=== PATIENT | male | born 1935 | race Caucasian/White ===

== ENCOUNTER → 2018-08-07 | Outpatient (CLI) | payer OTHER, MEDICARE ==
[~2018-08-07] MED LIST: ASPIR LOW81 MG PO; B12,B-12,B 12500 MC1 PO; LISINOPRIL40 MG PO; NORCO 325 MG-51 TAB PO; ONE DAILY MULTI1 TA2 PO; TESTOSTERO200 MG/10 PO; VERAPAMIL240 MG PO; ZANTAC150 MG PO
[2018-08-07 09:54] LABS: ALBUMIN 3.8 gm/dl (3.1-4.5); CREATININE 1.7 mg/dL (0.70-1.30); POTASSIUM 5.1 mmol/L (3.5-5.1); TOTAL PROTEIN 8.4 gm/dL (6.4-8.2)
== END | disposition home or self-care (01) ==
LOC: LAB 08:58 → MRI 09:00
PROVIDERS: Nurse Practitioner Family
DX: K80.20 Calculus of gallbladder without cholecystitis without obstruction (principal); K76.89 Other specified diseases of liver; K86.89 Other specified diseases of pancreas; N28.1 Cyst of kidney, acquired

== ENCOUNTER 2019-08-29 11:51 | Emergency (ER) | payer OTHER ==
[~2019-08-29] VITALS: Ht 170.1 cm; Wt 80.7 kg
[2019-08-29 13:09] LABS: HEMOGLOBIN 13.7 g/dl (14.0-18.0); MEAN CELL VOLUME 92.4 fl (80.0-94.0); MEAN CORPUSCULAR HGB 31.6 pg (27.0-31.0); MEAN CORPUSCULAR HGB CONC 34.3 g/dl (33.0-37.0); MEAN PLATELET VOLUME 11.9 fl (9.6-12.3); PLATELET COUNT AUTOMATED 218 10*3/uL (130-400); RED BLOOD COUNT 4.33 10*6/uL (4.50-5.90); RED CELL DISTRI WIDTH 15.4 % (0-14.5); WHITE BLOOD COUNT 16.8 10*3/uL (4.8-10.8)
[2019-08-29 13:19] LABS: ACT PARTIAL THROMBO TIME 27.5 SECONDS (20.0-32.1); INTERNATIONAL NORM RATIO 1.1 (2.0-3.5)
[2019-08-29 13:27] LABS: ALBUMIN 3.1 gm/dl (3.1-4.5); ALKALINE PHOSPHATASE 171 U/L (45-117); BUN 36 mg/dl (7-24); CHLORIDE 99 mmol/L (98-107); CREATININE 2.16 mg/dL (0.70-1.30); LIPASE 43 U/L (73-393); SGOT/AST 258 IU/L (3-35); SGPT/ALT 270 U/L (12-78); SODIUM 130 mmol/L (136-145); TOTAL PROTEIN 7.6 gm/dL (6.4-8.2)
[2019-08-29 13:29] LABS: POTASSIUM 4.5 mmol/L (3.5-5.1); TROPONIN I < 0.015 ng/ml (<0.045)
[2019-08-29 13:31] LABS: TOTAL CELLS COUNTED 100 #CELLS
[2019-08-29 13:32] LABS: PLATELET SUFFICIENCY NORMAL (NORMAL)
== END 2019-08-29 16:06 ==
LOC: ED 11:51
PROVIDERS: Emergency Medicine
DX: K83.1 Obstruction of bile duct (principal); R82.90 Unspecified abnormal findings in urine; R53.1 Weakness; I10 Essential (primary) hypertension; K21.9 Gastro-esophageal reflux disease without esophagitis; Z88.2 Allergy status to sulfonamides; Z79.899 Other long term (current) drug therapy; Z79.82 Long term (current) use of aspirin

== ENCOUNTER 2019-11-01 01:34 | Emergency (ER) | payer OTHER ==
[~2019-11-01] VITALS: Ht 172 cm; Wt 68.0 kg
== END 2019-11-01 02:25 | disposition other institution (70) ==
LOC: ED 01:34
DX: K94.23 Gastrostomy malfunction (principal); K21.9 Gastro-esophageal reflux disease without esophagitis; I10 Essential (primary) hypertension; Z88.2 Allergy status to sulfonamides; Z79.899 Other long term (current) drug therapy; Z79.82 Long term (current) use of aspirin